=== PATIENT | male | born 1970 | race Caucasian/White ===

== ENCOUNTER 2017-03-18 22:37 | Emergency (ER) | payer MEDICAID ==
[~2017-03-18] VITALS: Ht 167.6 cm; Wt 87.5 kg
[2017-03-18 22:40] VITALS: Ht 167.6 cm; Wt 87.5 kg
[2017-03-18] MEDS ORDERED: DIPHENHYDRAMINE 50 MG INJ IM STA (22:57)
[2017-03-18] MEDS ORDERED: METHYLPREDNISOLONE 125 MG INJ IM STA (22:57)
[2017-03-18] MEDS ORDERED: BEN50 PO (23:12)
[2017-03-18] MEDS ORDERED: PRED50TA PO (23:12)
--- NOTE | 2017-03-19 03:10 | ERD ---
ER Documentation Chief Complaint Date/Time DATE: 03/19/17 TIME: 03:08 Chief Complaint bilateral arm rashes w/ itchiness, HPI This is a 46-year-old male with history of hypertension presenting to the emergency department complaining of a rash on his bilateral arms that has been spreading for the past 5 days. Patient states that it is very itchy. He denies any pain associated with it. Patient denies any new creams or new medications or recent traveling. He states that he is tried baking soda on his arms but does not help him. He has taken Benadryl this morning without any relief. He denies any chest pain, shortness of breath ROS All systems reviewed and are negative except as per history of present illness. Medications Home Meds Active Scripts Prednisone* (Prednisone*) 50 Mg Tablet, 50 MG PO DAILY for 4 Days, TAB Prov:DIAN LOCO PA-C 03/18/17 Diphenhydramine Hcl* (Benadryl*) 50 Mg Cap, 50 MG PO Q6 Y for ITCHING, #30 CAP Prov:DIAN LOCO PA-C 03/18/17 Allergies Allergies: Coded Allergies: No Known Allergy (Unverified , 03/18/17) PMhx/Soc Medical and Surgical Hx: pt denies Medical Hx, pt denies Surgical Hx Hx Alcohol Use: No Hx Substance Use: No Hx Tobacco Use: No Smoking Status: Never smoker Physical Exam Vitals Vital Signs Date Time Temp Pulse Resp B/P Pulse Ox O2 Delivery O2 Flow Rate FiO2 03/18/17 22:40 98.2 86 20 142/91 98 Physical Exam General: WD/WN, in no apparent distress, non-toxic appearing HENT: NC/AT Eyes: Conjunctiva normal Neck: Supple Pulm: Clear to auscultation, normal labored breathing; no wheezing/rales/ rhonchi heard CV: Good capillary refill GI: Non-distended, no guarding Back: No masses Ext: No clubbing, cyanosis, or edema Neuro: Moves on all fours Skin: Raised erythematous papules on bilateral arms Psych: Normal mood Results 24 hrs Current Medications Medications (Trade) Dose Ordered Sig/Bharath Route PRN Reason Start Time Stop Time Status Last Admin Dose Admin Methylprednisolone Sodium Succinate (Solu-Medrol) 125 mg ONCE STAT IM 03/18/17 22:57 03/18/17 22:59 DC 03/18/17 23:06 Diphenhydramine HCl (Benadryl) 50 mg ONCE STAT IM 03/18/17 22:57 03/18/17 22:59 DC 03/18/17 23:06 [facility] This is a 46-year-old male presenting to the emergency department with rash most likely due to an allergic reaction. There was no evidence of anaphylaxis, cellulitis or scabies. Patient is well appearing, his airways are intact with breathing well on room air. In the ED patient was given Solu-Medrol IM with Benadryl. Patient had some relief in symptoms. Patient stable to be discharged home with a prescription for prednisone and Benadryl. I discussed with him to follow-up with his primary care physician tomorrow. Discussed return to the ER for any worsening symptoms. He understands and agrees with this Departure Diagnosis: Primary Impression: Allergic reaction Additional Impression: Dermatitis Condition: Stable Patient Instructions: First Aid: Allergic Reactions, Dermatitis, Non-Specific Referrals: [facility] () Usted se sung hecho un examen mdico de control que le indica que no est en fran condicin que requiera tratamiento urgente en el Departamento de Emergencia. Un estudio ms profundo y el tratamiento de connors condicin pueden esperar sin ningn riesgo hasta que usted sea atendida/o en el consultorio de connors mdico o frna cl shira. Es responsabilidad suya arreglar fran michael para el seguimiento del ploo. MANEJO DE CONDICIONES NO URGENTES EN EL FUTURO 1) Si usted tiene un mdico de atencin primaria: Usted debera llamar a connors mdico de atencin primaria antes de venir al departamento de emergencia. Despus de las horas de consultorio, connors doctor o connors asociado/a est disponible por telfono. El mdico o enfermero de letty en el servicio telefnico puede asesorarle por javier medio para atender el problema, o polo contrario se puede programar fran michael. 2) Si usted no tiene un mdico de atencin primaria: Llame al mdico o clnica de referencia que aparece abajo daylin las horas de consultorio para hacer fran michael para que le vean. CLINICAS: [facility] [phone] [facility] [phone] [facility] [phone] [facility] [phone] [place] [phone] [facility] [phone] [address] Additional Instructions: Visite a connors mdico maana para un EXAMEN.Regrese a estas instalaciones si no se mejora daniela esperbamos o daniela le dijimos. [place] toda la medicina coral y daniela se le indic. Regrese a estas instalaciones si no se mejora daniela esperbamos o daniela le dijimos. La medicina que se le recet puede causarle sueo.NO DEBE MANEJAR NI OPERAR MAQUINARIAS PELIGROSAS mientras esta tomando esta medicina! DIAN LOCO PA-C Mar 19, 2017 03:10
== END 2017-03-18 23:36 | disposition home or self-care (01) ==
LOC: FTE 22:37
DX: L30.9 Dermatitis, unspecified (principal); I10 Essential (primary) hypertension
CPT/HCPCS: 96372; J1200; J2930; Z7502

== ENCOUNTER 2017-07-05 20:41 | Emergency (ER) | payer MEDICAID ==
[~2017-07-05] VITALS: Ht 170.2 cm; Wt 87.5 kg
[~2017-07-05 20:41] MED LIST: BEN50 PO; PRED50TA PO
[2017-07-05 21:26] VITALS: Ht 170.2 cm; Wt 87.5 kg
[2017-07-05] MEDS ORDERED: HYDR26CR PR (23:18)
[2017-07-05] MEDS ORDERED: PHEN1SUP80 PR (23:18)
--- NOTE | 2017-07-12 00:08 | ERD ---
ER Documentation Chief Complaint Date/Time DATE: 07/12/17 TIME: 00:05 Chief Complaint Bright red blood when wipe while having BM. "feel swollen" HPI Patient is a 46-year-old male presenting to the emergency department with complaints of bright red blood on his toilet paper and a small amount in his poop intermittently for the past 3 months. He also reports some pain while defecating. He does have history of hemorrhoids. He has had no dizziness, fevers, chills, or other symptoms noted. ROS All systems reviewed and are negative except as per history of present illness. Medications Home Meds Active Scripts Hydrocortisone* Rectal (Preparation H* Cream) 1% - 26 Gm Cream.gm., 1 APPLIC MA BID for 7 Days, #1 TUB Prov:FRENCH JONES PA-C 07/05/17 Phenylephrine HCl/Opelika Butter* (Preparation H* Suppository) 1 Each Supp.rect, 1 EACH MA BID, #6 SUPP.RECT Prov:FRENCH JONES PA-C 07/05/17 Prednisone* (Prednisone*) 50 Mg Tablet, 50 MG PO DAILY for 4 Days, TAB Prov:DIAN LOCO PA-C 03/18/17 Diphenhydramine Hcl* (Benadryl*) 50 Mg Cap, 50 MG PO Q6 Y for ITCHING, #30 CAP Prov:DIAN LOCO PA-C 03/18/17 Allergies Allergies: Coded Allergies: No Known Allergy (Unverified , 07/05/17) PMhx/Soc History of Surgery: No Anesthesia Reaction: No Hx Neurological Disorder: No Hx Respiratory Disorders: No Hx Cardiac Disorders: No Hx Psychiatric Problems: No Hx Miscellaneous Medical Probl: No Hx Alcohol Use: No Hx Substance Use: No Hx Tobacco Use: No Smoking Status: Never smoker Physical Exam Physical Exam Nontoxic, well-appearing male in no acute distress. Const: [] Head: Atraumatic Eyes: Normal Conjunctiva ENT: Normal External Ears, Nose and Mouth. Neck: Full range of motion..~ No meningismus. Resp: Clear to auscultation bilaterally Cardio: Regular rate and rhythm, no murmurs Abd: Soft, non tender, non distended. Normal bowel sounds RECTAL: Verbal Consent Obtained. Patient's is present during the examination. Sphincter tone is normal. There are 2 external hemorrhoids seen one at 3:00 and one at 7:00 which are nonthrombosed. No evidence of anal fissure. One internal hemorrhoid which is reducible at approximately 9:00. Non- tender to digital rectal palpation. No masses palpated. Skin: No petechiae or rashes Back: No midline or flank tenderness Ext: No cyanosis, or edema Neur: Awake and alert Psych: Normal Mood and Affect Procedures/MDM 46-year-old male presents to the emergency department with complaints of rectal bleeding. History and physical examination consistent with reducible hemorrhoids which are non-complicated. They do not appear to be thrombosed. The patient was stable for discharge with a prescription for topical cream and rectal suppository for hemorrhoids. He agreed with the discharge plan a diagnosis. Low suspicion for life-threatening illness at time of discharge. The patient was advised to follow-up with his primary care physician within 1-2 days. The patient was advised to return immediately for any new or worsening symptoms. Departure Diagnosis: Primary Impression: Hemorrhoid Hemorrhoid type: unspecified Qualified Code: K64.9 - Hemorrhoids, unspecified hemorrhoid type Condition: Fair Patient Instructions: Understanding Hemorrhoids Referrals: [facility] Usted se sung hecho un examen mdico de control que le indica que no est en fran condicin que requiera tratamiento urgente en el Departamento de Emergencia. Un estudio ms profundo y el tratamiento de connors condicin pueden esperar sin ningn riesgo hasta que usted sea atendida/o en el consultorio de connors mdico o fran cl shira. Es responsabilidad suya arreglar fran michael para el seguimiento del polo. MANEJO DE CONDICIONES NO URGENTES EN EL FUTURO 1) Si usted tiene un mdico de atencin primaria: Usted debera llamar a connors mdico de atencin primaria antes de venir al departamento de emergencia. Despus de las horas de consultorio, connors doctor o connors asociado/a est disponible por telfono. El mdico o enfermero de letty en el servicio telefnico puede asesorarle por javier medio para atender el problema, o polo contrario se puede programar fran michael. 2) Si usted no tiene un mdico de atencin primaria: Llame al mdico o clnica de referencia que aparece abajo daylin las horas de consultorio para hacer fran michael para que le vean. CLINICAS: [place] [phone] [facility] [phone] [facility] [phone] [place] [address] [phone] [place] [phone] [facility] [phone] [address] Additional Instructions: Visite a connors mdico maana para un EXAMEN.Regrese a estas instalaciones si no se mejora daniela esperbamos o daniela le dijimos. FRENCH JONES PA-C Jul 12, 2017 00:08
== END 2017-07-05 23:56 | disposition home or self-care (01) ==
LOC: FTE 20:41
DX: K64.4 Residual hemorrhoidal skin tags (principal)
CPT/HCPCS: 99284

== ENCOUNTER 2017-09-25 13:18 | Emergency (ER) | END 2017-09-25 17:22 | disposition home or self-care (01) ==